=== PATIENT | female | born 1960 | race Caucasian/White ===

== ENCOUNTER → 2020-09-08 | Outpatient (CLI) | payer BC | END | disposition home or self-care (01) | LOC: US 09:51 | PROVIDERS: ATTEND Family Medicine | DX: R92.8 Other abnormal and inconclusive findings on diagnostic imaging of breast (principal) ==

== ENCOUNTER → 2021-02-19 | Outpatient (CLI) | payer BC ==
[2021-02-23 18:06] LABS: STRIATIONAL ANTIBODIES Negative (Neg:<1:40)
[2021-02-26 13:07] LABS: ACHR BLOCKING AB 4 % (0-25)
[2021-03-02 10:06] LABS: ACHR MODULATING AB <12 % (0-20)
== END | disposition home or self-care (01) ==
LOC: LAB 14:07 → MAMMO 14:30
PROVIDERS: Family Medicine; ATTEND Family Medicine
DX: Z12.31 Encounter for screening mammogram for malignant neoplasm of breast (principal); R13.10 Dysphagia, unspecified